=== PATIENT | male | born 1975 | race Caucasian/White ===

== ENCOUNTER 2016-10-20 06:56 | Emergency (ER) | payer OTHER ==
[~2016-10-20] VITALS: Ht 195.6 cm; Wt 99.0 kg
[~2016-10-20 06:56] MED LIST: HYDR-3533 PO; METHO500 PO; NAPR500 PO
[2016-10-20 06:59] VITALS: BP 134/89; PULSE 66; RESP 16; TEMP 98; O2SAT 99
--- NOTE | 2016-10-20 07:13 | PD ---
HPI Chief Complaint: Numbness/Tingling Time Seen by Provider: 07:09 Travel History International Travel<30 days: No Contact w/Intl Traveler<30days: No Traveled to known affect area: No History of Present Illness HPI Patient is a 40-year-old male who is left-hand dominant, presents to emergency room for evaluation of numbness to his left digits #1 and 2. Patient reports that he woke up from sleep this morning had numbness to his fingers, reports that he did sleep on his abdomen with his left shoulder and hand under his pillow. Patient reports that this has never happened in the past, reports that the numbness does not extend up his hands, reports that it is located to his digits 1 and 2 only. Patient with no headache or dizziness, no vision changes, patient with no chest pain or shortness of breath. Patient reports no medical history, reports that he is a smoker. Reports that he currently is not on any medications. PFSH Past Medical History Diminished Hearing: No Past Surgical History Abdominal Surgery: Yes (HERNIA) Other Surgery: Yes (INGUINAL HERNIA REPAIR- RIGHT SIDE- CHILD) Social History Alcohol Use: No Tobacco Use: Yes (05/25 PPD) Substance Use: No Allergies-Medications (Allergen,Severity, Reaction): Coded Allergies: No Known Allergies (Verified , 10/20/16) Reported Meds & Prescriptions Reported Meds & Active Scripts Active No Active Prescriptions or Reported Medications Review of Systems General / Constitutional: No: Fever Eyes: No: Visual changes HENT: No: Headaches Cardiovascular: No: Chest Pain or Discomfort Respiratory: No: Shortness of Breath Gastrointestinal: No: Abdominal Pain Genitourinary: No: Dysuria Musculoskeletal: No: Pain Skin: No Rash Neurologic: Positive: Paresthesia (parastesia to left hand digit #1-2), No: Weakness Psychiatric: No: Depression Endocrine: No: Polydipsia Hematologic/Lymphatic: No: Easy Bruising Physical Exam Narrative GENERAL: nad, nontoxic SKIN: Focused skin assessment warm/dry. HEAD: Atraumatic. Normocephalic. NECK: Trachea midline. No JVD. CARDIOVASCULAR: Regular rate and rhythm. No murmur appreciated. RESPIRATORY: No accessory muscle use. Clear to auscultation. Breath sounds equal bilaterally. GASTROINTESTINAL: Abdomen soft, non-tender, nondistended. Hepatic and splenic margins not palpable. MUSCULOSKELETAL: No obvious deformities. No clubbing. No cyanosis. No edema. Patient with no neurological deficits to the extremities LUE: Normal range of motion to left shoulder, left elbow, left wrist, all fingers. Pulses intact, neurovascularly intact. Patient with paresthesias over the dorsal surface of digits #1 and 2, normal muscle strength RUE: Normal exam NEUROLOGICAL: Awake and alert. No obvious cranial nerve deficits. Motor grossly within normal limits. Normal speech. PSYCHIATRIC: Appropriate mood and affect; insight and judgment normal. Data Data Last Documented VS Vital Signs Date Time Temp Pulse Resp B/P Pulse Ox O2 Delivery O2 Flow Rate FiO2 10/20/16 07:11 16 10/20/16 06:59 98.0 66 134/89 99 MDM Medical Decision Making Medical Screen Exam Complete: Yes Emergency Medical Condition: Yes Interpretation(s) Vital Signs Date Time Temp Pulse Resp B/P Pulse Ox O2 Delivery O2 Flow Rate FiO2 10/20/16 07:11 16 10/20/16 06:59 98.0 66 16 134/89 99 Differential Diagnosis Paresthesias, CVA though unlikely, radiculopathy Narrative Course Patient is a 40-year-old male who presents to emergency room with complaints of paresthesias to left hand digit #1 and 2. Patient reports that he noticed the symptoms this morning he woke up from sleep. He does admit to lying on his left hand when he sleeps, with his left hand behind his pillow. Patient at this time with no neurological deficits other than his paresthesias to his plantar aspect of digit #1 and 2. I do think that his symptoms are from nerve compression from sleeping on his hands. I think the patient is having an acute stroke at this time, discussed with him need to follow up with his primary care doctor. Signs and symptoms of when to return to emergency room as needed patient in detail. Diagnosis Primary Impression: Neuropathy Patient Instructions: General Instructions Departure Forms: Tests/Procedures, Work Release Enter return to work date: October 21, 2016 Additional Instructions: Please stop with the primary care doctor in 2-3 days Return to ER if symptoms worsen or progress Return to ER as needed Scripts No Active Prescriptions or Reported Meds Disposition: 01 DISCHARGE HOME Condition: Stable Mindy Allan DO October 20, 2016 07:13 Mindy Allan DO October 20, 2016 07:13
== END 2016-10-20 07:30 | disposition home or self-care (01) ==
LOC: PHED 06:56
DX: G62.9 Polyneuropathy, unspecified (principal); F17.200 Nicotine dependence, unspecified, uncomplicated
CPT/HCPCS: 99281